=== PATIENT | female | born 1995 | race Caucasian/White ===

== ENCOUNTER 2020-02-27 16:23 | Emergency (ER) | payer MEDICAID, OTHER, SELFPAY ==
[2020-02-27 16:27] VITALS: BP 119/79; PULSE 84; RESP 18; TEMP 36.7; O2SAT 100; BMI 30.7
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
[2020-02-27] MEDS: tetanus-dipt-pertussis 0.5 mL SDV IM (20:36)
[2020-02-27] MEDS: azithromycin 250 mg Tablet 1000 MG PO (20:39)
== END 2020-02-27 20:45 ==
PROVIDERS: Emergency Provider Nurse Practitioner Family
DX: T76.21XA Adult sexual abuse, suspected, initial encounter (principal); Z23 Encounter for immunization
CPT/HCPCS: 12345; 87491; 87591; 90471; 90715; 96372; 99282; J0696; Q0144

== ENCOUNTER → 2020-03-08 12:24 | Outpatient (BNVA) | payer MEDICAID, SELFPAY | PROVIDERS: Visit Provider Nurse Practitioner Family | DX: T74.21XD Adult sexual abuse, confirmed, subsequent encounter (principal); Z13.31 Encounter for screening for depression | CPT/HCPCS: 87086; 87491; 87591 ==

== ENCOUNTER 2020-05-01 15:07 | Outpatient (CLI) | payer MEDICAID, SELFPAY ==
[2020-05-01] VITALS (10 sets, daily range): BP systolic 121; BP diastolic 68; PULSE 85–122; RESP 18; TEMP 36.8; O2SAT 97–100; BMI 30.4
== END 2020-05-01 17:13 | disposition home or self-care (01) ==
LOC: OPOB 15:21 → OBGYN 16:56
PROVIDERS: Visit Provider Family Medicine
DX: O26.899 Other specified pregnancy related conditions, unspecified trimester (principal); Z3A.00 Weeks of gestation of pregnancy not specified; R10.9 Unspecified abdominal pain
CPT/HCPCS: 59025; 99211

== ENCOUNTER 2020-05-27 16:13 | Outpatient (CLI) | payer MEDICAID, SELFPAY ==
[2020-05-27] VITALS (9 sets, daily range): BP systolic 0–123; BP diastolic 0–78; PULSE 70–88; RESP 16; TEMP 36.7; BMI 27.7
== END 2020-05-27 19:25 | disposition home or self-care (01) ==
LOC: OPOB 16:25 → OBGYN 19:11
PROVIDERS: Visit Provider Family Medicine
DX: O24.419 Gestational diabetes mellitus in pregnancy, unspecified control (principal); Z3A.00 Weeks of gestation of pregnancy not specified; R10.9 Unspecified abdominal pain
CPT/HCPCS: 59025; 83986; 99211

== ENCOUNTER 2020-05-28 02:00 | Inpatient (IN) | payer MEDICAID, SELFPAY ==
[2020-05-28] VITALS (101 sets, daily range): BP systolic 0–147; BP diastolic 0–97; PULSE 56–124; RESP 16–18; TEMP 36.6–36.9; O2SAT 97–100; BMI 27.7
[2020-05-28 02:42] LABS: Basophils % 0.2 %; Eosinophils # 0.1 10^3/uL (0.0-0.8); Eosinophils % 0.9 %; Hematocrit 30.2 % (37.0-47.0); Hemoglobin 9.9 g/dL (11.5-15.3); Lymphocytes # 2.3 10^3/uL (0.8-4.8); Lymphocytes % 21.8 %; Mean Corpuscular HGB Conc 32.8 g/dL (30.0-36.0); Mean Corpuscular Hemoglobin 29.6 pg (28.0-34.0); Mean Corpuscular Volume 90.1 fL (81-99); Mean Platelet Volume 11.3 fL (7.4-10.4); Monocytes # 0.6 10^3/uL (0.2-0.9); Monocytes % 5.5 %; Neutrophils # 7.41 10^3/uL (1.8-7.7); Neutrophils % 71.3 %; Nucleated Red Blood Cells % 0 %; Platelet Count 197 10^3/cmm (130-400); Red Blood Count 3.35 10^6/uL (4.1-5.3); Red Cell Distribution Width 13.2 % (12.1-15.1); White Blood Count 10.4 10^3/uL (4.0-10.0)
--- NOTE | 2020-05-28 03:30 | ANES.PREANE2 ---
Pre-Anesthetic Assessment Pre-Anesthetic Assessment: Height/Weight: Height 1.7 m Pulse Resp BP Pulse Ox 107 H 18 145/79 100 05/28/20 03:57 05/28/20 03:39 05/28/20 03:57 05/28/20 03:52 Preop Diagnosis: IUP Proposed Procedure: labor epidural Was Beta Kaye taken within 24 hours: N/A Social: Social History: No alcohol and No tobacco Exam: Pre-Anes Outpt Exam: alert, oriented x 3, clear to auscultation bilaterally and regular rate & rhythm Airway: Submandibular: WNL Cervical ROM: WNL MP: 2 History/ROS: No significant history except as noted Pulmonary: Pulmonary: None reported CV/HEM: CV/HEM: None reported : : None reported Hepatic: Hepatic: None reported GI: GI: None reported Metabolic: Metabolic: None reported Musc/skel: Musc/skel: None reported Neuropsych: Neuropsych: None reported Anesthetic Plan: ASA status: 1 Anesthesia: Anesthesia Evaluation Risk of > 500 ml blood loss (7ml/kg in children): No Meds/Allergies Current Medications: Current Medications Generic Name Dose Route Start Last Admin Trade Name Freq PRN Reason Stop Dose Admin Fentanyl 25 - 100 mcg 05/28/20 02:02 05/28/20 03:39 Sublimaze IV 25 mcg Q1H PRN Administration SEVERE PAIN Ondansetron HCl 4 mg 05/28/20 02:02 05/28/20 03:39 Zofran IVP 4 mg Q4H PRN Administration NAUSEA AND VOMITI NG PFSH Anesthesia PFSH: Social History (Updated 03/08/20 @ 11:45 by Tiff Sher LPN) Smoking and tobacco status: never smoked Alcohol intake: never Data Anesthesia CBC & Chem 7: 05/28/20 02:10 Other Labs: Laboratory Results - last 48 hr 05/28/20 05/28/20 02:10 03:16 WBC 10.4 H RBC 3.35 L Hgb 9.9 L Hct 30.2 L MCV 90.1 MCH 29.6 MCHC 32.8 RDW 13.2 Plt Count 197 MPV 11.3 H Neut % (Auto) 71.3 Lymph % (Auto) 21.8 [place] % (Auto) 5.5 Eos % (Auto) 0.9 Baso % (Auto) 0.2 Neut # (Auto) 7.41 Lymph # (Auto) 2.3 [place] # (Auto) 0.6 Eos # (Auto) 0.1 Baso # (Auto) 0.0 Nucleated RBC % (auto) 0 Nucleated RBCs # 0.0 Urine Opiates Screen Negative Ur Barbiturates Screen Negative Ur Phencyclidine Scrn Negative Ur Amphetamines Screen Negative U Benzodiazepines Scrn Negative Urine Cocaine Screen Negative U Marijuana (THC) Screen Negative Cardiac Studies: No Data to Display
[2020-05-28 03:32] LABS: Amphetamines Screen Urine Negative (Negative); Barbiturates Screen Urine Negative (Negative); Benzodiazepines Screen Urine Negative (Negative); Cocaine Screen Urine Negative (Negative); Opiate Screen Urine Negative (Negative); PCP Screen Urine Negative (Negative); THC Screen Urine Negative (Negative)
[2020-05-28] MEDS: ondansetron 2 mg/ML SDV 2 mL 4 MG IVP ×2 (03:39→10:02)
[2020-05-28] MEDS: fentaNYL 50 mcg/mL INJ 2mL IV (03:39)
--- NOTE | 2020-05-28 04:03 | ANES.PROC ---
Anesthesia Procedures Procedure/Date: 05/28/20 Epidural: Time Out Performed: Yes Consents Signed: Procedure Consent Consent: requested by attending/covering physician Lumbar Level: L3-L4 Epidural position: sitting Epidural procedure: sterile prep of area, 1% lidocaine to numb the area, 18 g needle, negative for paresthesia passed, neg for paresthesia, test dose given, 1.5% xylocaine 1:200k epi (5ml), 0.2% Ropivacaine bolus ml (5ml), placed PCEA, no systemic response, sterile dressing applied, L.U.D. no apparent complications and 0.2% Ropiavacaine @ mls/hr (13)
--- NOTE | 2020-05-28 04:59 | PC.NURSE ---
This RN and Courtney Oliveira RN at bedside for epidural placement. 25mcg of Fentanyl was given via IVP per order. Chantal Jackson CRNA at bedside and requested to use remaining 75mcg of Fentanyl in patients epidural. Vial given to PARMINDER Jackson by this RN and JEN Oliveira as witness.
--- NOTE | 2020-05-28 06:44 | PC.NURSE ---
Child being placed for adoption.
[2020-05-28] MEDS: dextrose 5%-lactated ringers 1,000 ML 125 ML IV (11:31)
[2020-05-28] MEDS: oxytocin 30 UNIT/500 ML BAG 600 UNIT IV (13:06)
--- NOTE | 2020-05-28 13:43 | P.PCNOB_ITS ---
Delivery Note: Date of delivery: May 28, 2020 Pre-Delivery Course: The patient had routine care at [facility]. She initially tested positive for chlamydia early in the but had 2 negative tests later in the . There were no complications during the . Delivery: This is a 24-year-old G3, P2 at 40 weeks 3 days gestation who presented to labor and delivery in active labor. She presented with planned adoption and the adoptive mother. Her labor progressed well on its own. She received an epidural for pain management. She had artificial rupture of membranes with clear fluid approximately 3 hours prior to delivery. She was GBS negative. She only had to push 3 times. She had a normal spontaneous vaginal delivery of a viable male weight 3145 g, 6 pounds 15 ounces, Apgars 9 and 9. The infant was suctioned at delivery and then taken to the warmer. The placenta was delivered grossly intact and normal to inspection. There was a small second-degree perineal laceration that was sutured using 3-0 chromic. Mother and infant were doing well after delivery. Estimated blood loss 200 mL. A&P Assessment and plan (1) Normal spontaneous vaginal delivery: Status: Acute Coding Level of Care Code Acute Pilot Teacher for Chg Fwd Diagnoses Normal spontaneous vaginal delivery O80
--- NOTE | 2020-05-28 14:01 | PC.NURSE ---
Dr. Gonzales states patient has had two negative GC tests since the positive reflected in her paper prenatals.
[2020-05-28] MEDS: ibuprofen 800 mg tablet PO ×2 (15:44→21:40)
[2020-05-28] MEDS: benzocaine-menthol 78 gm Canister 1 SPRAY TOPICAL (15:44)
--- NOTE | 2020-05-28 16:49 | PC.NURSE ---
Patient taken to room 206-2 via w/c. Patient's right leg remains numb. Patient oriented to and certificate explained. Patient instructed not to get up without assistance.
[2020-05-28] MEDS: docusate sodium 100 mg Capsule PO (18:46)
[2020-05-28] MEDS: HYDROcodone-acetaminophen 5-325 mg Tablet PO (22:55)
[2020-05-29 02:25] LABS: Hematocrit 27.3 % (37.0-47.0); Hemoglobin 8.6 g/dL (11.5-15.3); Mean Corpuscular HGB Conc 31.5 g/dL (30.0-36.0); Mean Corpuscular Hemoglobin 29.1 pg (28.0-34.0); Mean Corpuscular Volume 92.2 fL (81-99); Mean Platelet Volume 11.1 fL (7.4-10.4); Platelet Count 147 10^3/cmm (130-400); Red Blood Count 2.96 10^6/uL (4.1-5.3); Red Cell Distribution Width 13.3 % (12.1-15.1); White Blood Count 10.9 10^3/uL (4.0-10.0)
[2020-05-29 03:00] VITALS: BP 124/70; PULSE 68; RESP 18
[2020-05-29] MEDS: HYDROcodone-acetaminophen 5-325 mg Tablet PO (05:46)
[2020-05-29] MEDS: ibuprofen 800 mg tablet PO (09:19)
[2020-05-29] MEDS: prenatal vitamin Capsule 1 CAP PO (09:19)
[2020-05-29] MEDS: docusate sodium 100 mg Capsule PO (09:19)
--- NOTE | 2020-05-29 10:06 | PM.OBGYDC ---
Discharge Providers GUEST HOUSE MANAGER Date of Admission: 05/28/20 02:00 Date of Discharge: 05/29/20 Attending Provider at Admission: Sera Gonzales MD Attending Provider at Discharge: Sera Gonzales MD Diagnoses at Discharge Discharge Diagnosis (1) Normal spontaneous vaginal delivery: Status: Acute Reason for Visit Reason for Visit: Contractions Hospital Course Hospital Course: This is a 24-year-old G3 now P3 at 40 weeks 3 days gestation who presented to labor and delivery in active labor. She had a normal spontaneous vaginal delivery of a viable male infant. The was a planned adoption. Mother did well after delivery and had decreased vaginal bleeding, no pain, was ambulating, tolerating a regular diet and was comfortable with discharge home. Information Peripartum Data: Delivery Method: Vaginal Physical Exam Const: COMMON NORMALS: patient oriented x3 HENMT: COMMON NORMALS: normocephalic and atraumatic HEAD & SCALP: normocephalic and atraumatic Eye: COMMON NORMALS: Equal, round and reactive pupils present and EOMs intact bilaterally PUPIL: Yes Equal, round and reactive pupils present Resp: COMMON NORMALS: normal respiratory effort Cardio: COMMON NORMALS: regular rate and regular rhythm RATE: regular rate RHYTHM: regular rhythm GI: COMMON NORMALS: Soft to palpation (Fundus firm U- 2), non-tender and No hepatosplenomegaly present PALPATION: Yes Soft to palpation (Fundus firm U- 2) and Yes No hepatosplenomegaly present Extremity: GENERAL: No calf tenderness and No edema Neuro: COMMON NORMALS: patient oriented x3 Urinary Catheter Management^: Treviño: Cath Placed During This Visit: yes, but has since been removed by the nurse Reason for Continuing Indwelling Catheter: Required Immobilization for Trauma or Surgery or Anesthesia Urinary Catheter Date of Insertion: 05/28/20 Urinary Catheter Time of Insertion: 04:00 Date Urinary Catheter Removed: 05/28/20 Time Urinary Catheter Discontinued: 12:57 Discharge Data Data Completed and Pending: Labs from last 24 hours 05/29/20 02:15 WBC 10.9 H RBC 2.96 L Hgb 8.6 L Hct 27.3 L MCV 92.2 MCH 29.1 MCHC 31.5 RDW 13.3 Plt Count 147 MPV 11.1 H Vitals: Last Vital Signs Temp 98.4 F 05/28/20 21:00 Pulse 68 05/29/20 03:00 Resp 18 05/29/20 03:00 BP 124/70 05/29/20 03:00 Pulse Ox 97 05/28/20 23:00 Discharge Plan Discharge Patient Disposition: Home Condition: Stable Prescriptions: No Action No Known Home Medications RF: 0 Discharge Orders: Discharge Order (Routine); Ordered 05/29/20 Ordered By: Sera Gonzales Referrals: Sera Gonzales MD [Physician] - 2 weeks Discharge Diet: Usual diet Discharge Activity: Limit activity as instructed Patient Instructions: Perineal Care (GEN), Vaginal Delivery (GEN), Bleeding (GEN), OB Discharge Report, OB Food/Drug Interaction Guide Discharge Attestations GUEST HOUSE MANAGER Time Spent in Discharge Care*: less than 30 min Coding Level of Care Code Acute Remanufacturing Technician for Chg Fwd Diagnoses Normal spontaneous vaginal delivery O80
[2020-05-29 10:56] VITALS: BP 117/73; PULSE 69; RESP 15
[2020-05-29 12:04] VITALS: BP 111/73; PULSE 70; RESP 17; TEMP 36.9; O2SAT 99
== END 2020-05-29 12:17 | disposition home or self-care (01) | DRG 807 ==
LOC: OPOB 02:01 → OBGYN 02:01
PROVIDERS: Admitting Provider Family Medicine; Visit Provider Family Medicine
DX: O70.1 Second degree perineal laceration during delivery (principal); Z37.0 Single live birth; Z3A.40 40 weeks gestation of pregnancy
CPT/HCPCS: 36415; 51702; 59025; 59409; 80306; 85025; 85027; 96374; 96375; 99211; J2405; J2795; J3010

== ENCOUNTER 2020-11-02 19:46 | Emergency (ER) | payer BC, MEDICAID, SELFPAY ==
[2020-11-02 19:52] VITALS: BP 109/73; PULSE 129; RESP 18; TEMP 36.7; O2SAT 100; BMI 28.3
--- NOTE | 2020-11-02 19:54 | USR_ITS ---
PROCEDURE INFORMATION: Exam: US Nonobstetric Pelvis; Complete Exam date and time: 11/02/2020 10:15 PM Age: 25 years old Clinical indication: Other: Bleeding; Pelvic pain; Additional info: Miscarriage TECHNIQUE: Imaging protocol: Transabdominal pelvic nonobstetric ultrasound. Complete exam. Real time ultrasound with image documentation. COMPARISON: US Pelvis Female [id number] 06/30/2014 2:31 PM FINDINGS: Uterus/cervix: The uterus measures 11.7 x 4.3 x 6 cm. There is echogenic material present in the endometrial canal. Right adnexa: Right ovary is 2.6 x 1.4 x 2 cm. Normal flow. Left adnexa: Left ovary is 2.4 x 1 x 1.4 cm. Normal blood flow. Intraperitoneal space: No intraperitoneal fluid. Urinary bladder: Normal. US/US pelvic complete* [id number] IMPRESSION: Echogenic material in the endometrial canal without blood flow. Finding likely represents hemorrhage.
--- NOTE | 2020-11-02 20:15 | W.ED.FEMALGU ---
HPI - Female Genitourinary General: Chief complaint: Vaginal Bleeding Stated complaint: vaginal bleeding Time Seen by Provider: 11/02/20 19:47 History of Present Illness: HPI Narrative: The patient is a 25-year-old female diagnosed with a miscarriage 2 weeks ago. She was approximately 6 weeks gestational age. She was offered a D&C and declined an prefers to let the child pass spontaneously. She has had normal amounts of bleeding for the past few days however today she started to have large amounts of blood and when she stood up the bleeding went through her pants and onto the ground and she continues to gush of blood. She is having cramping associated, nausea, vomiting. MD elicited complaint: vaginal bleeding and other (Miscarriage) Severity: moderate Quality of pain: cramping Consistency: intermittent Vaginal bleeding: heavy and clots Associated symptoms: Reports nausea and vaginal bleeding; Deny abdominal pain or headache(s) Review of Systems General: Reports: 10 or more systems reviewed and unremarkable except in HPI and below Const: Denies: fatigue Eyes: Denies: change in vision, blurry vision or eye redness ENMT: Denies: throat pain, swelling of lips/tongue, ear or mastoid pain or nasal congestion Card: Denies: chest pain, palpitations, irregular heart rhythm, edema, dyspnea on exertion or orthopnea Resp: Denies: dyspnea, productive cough or non-productive cough GI: Reports: nausea and vomiting; Denies: abdominal pain, diarrhea or GI cramping : Reports: vaginal bleeding; Denies: flank pain, difficulty voiding, urinary frequency or urinary urgency Musc: Denies: neck pain, back pain, extremity pain, joint pain, joint redness, limited range of motion or muscle weakness Skin/Breast: Denies: rash, pruritus, erythema, skin pain or skin tenderness Neuro: Denies: headache(s), numbness in extremities, weakness in extremities, sensory changes, difficulty walking, dizziness, confusion or Slurred speech present Psych: Denies: anxiety or depression Endo: Denies: polyuria All/Imm: Denies: urticaria, throat swelling or tongue swelling PFSH ED PFSH: Social History (Updated 03/08/20 @ 11:45 by Tiff Sher LPN) Smoking and tobacco status: never smoked Alcohol intake: never Physical Exam Const: COMMON NORMALS: no acute distress, average body habitus, patient oriented x3, no limitations, healthy appearing, alert and well nourished GENERAL APPEARANCE: cooperative, comfortable, well kempt and well developed ORIENTATION/CONSCIOUSNESS: Yes awake, Yes oriented to person, Yes oriented to place and Yes oriented to time HENMT: COMMON NORMALS: normocephalic, external ears normal and Normal external nose present HEAD & SCALP: normal to inspection and normocephalic NOSE: Normal external nose present EXTERNAL EAR: Yes external ears normal MOUTH: Normal oral and palatal mucosa present THROAT: posterior oropharynx normal Eye: COMMON NORMALS: Equal, round and reactive pupils present and EOMs intact bilaterally GENERAL EYE: appearance normal, both eyes and all related structures PUPIL: Yes Equal, round and reactive pupils present Neck/C-Spine: COMMON NORMALS: full ROM, no lymphadenopathy, no meningeal signs and no JVD GENERAL: Yes normal visual inspection Lymph: LYMPHATIC: no lymphadenopathy noted Chest: COMMONS NORMALS: normal inspection of the chest and normal palpation of entire chest wall Resp: COMMON NORMALS: normal respiratory effort, No retractions, No use of accessory muscles, clear to auscultation bilaterally and percussion normal EFFORT & INSPECTION: Yes able to speak in complete sentences AUSCULTATION: clear to auscultation bilaterally PERCUSSION: percussion normal Cardio: COMMON NORMALS: no JVD, regular rate, regular rhythm, S1 normal heart sound present, S2 normal heart sound present and Peripheral pulses 2+ throughout RATE: regular rate RHYTHM: regular rhythm HEART SOUNDS: S1 normal heart sound present and S2 normal heart sound present PERIPHERAL PULSES: Peripheral pulses 2+ throughout GI: COMMON NORMALS: Normal to inspection, nondistended, normoactive bowel sounds present, Soft to palpation, non-tender and no masses INSPECTION: Yes normal to inspection PALPATION: Yes Soft to palpation : COMMON NORMALS: Yes no CVA tenderness BLADDER/KIDNEY EXAM: Yes no CVA tenderness SPECULUM EXAM - VAGINA: Yes vaginal bleeding and Yes other (Removed a clot from her vagina. No significant gushing of blood actively.) OB/EXTERNAL & SPECULUM: vaginal bleeding Back/Pelvis: COMMON NORMALS: no CVA tenderness, thoracic and lumbar spine normal to inspection, no thoracic nor lumbar tenderness and thoraco-lumbar ROM normal Extremity: COMMON NORMALS: normal to inspection, full ROM, capillary refill normal, no joint enlargement and no pedal edema GENERAL: Yes normal exam except as noted Neuro: COMMON NORMALS: patient oriented x3, CN's II-XII intact bilaterally, moves all extremities, no focal motor deficits, no sensory deficits noted and gait normal SENSORIUM/ORIENTATION: Yes alert, Yes oriented to person, Yes oriented to place and Yes oriented to time MENINGEAL SIGNS: Yes no meningeal signs Psych: COMMON NORMALS: mental status grossly normal, Normal thought process present, cooperative, normal affect and speech normal APPEARANCE: Yes well kempt ATTITUDE: Yes calm SPEECH: Yes normal speech THOUGHT PROCESS: Normal thought process present Skin: COMMON NORMALS: no rashes or lesions noted GENERAL SKIN EXAM: no rashes or lesions noted Course Vital Signs: Vital signs: Vital Signs Temperature 98.0 F 11/02/20 19:52 Pulse Rate 98 11/02/20 22:57 Respiratory Rate 18 11/02/20 22:57 Blood Pressure 129/68 11/02/20 22:57 Pulse Oximetry 99 11/02/20 22:57 MDM - Female MDM Narrative: Medical decision making narrative: The patient came in for a miscarriage. She is Rh- and has a hemoglobin of 10.9. Ultrasound is negative for any intrauterine products of conception. Her heart rate was initially elevated in the 120s and was given a liter of fluids, Zofran which helped and she is now below [address] rate. [address] Hay who recommends discharge and follow-up with her OB in a day or 2. The patient is amenable to this plan and will do so. ER with worsening symptoms Lab Data: Labs: Lab Results 11/02/20 11/02/20 11/02/20 Range/Units 20:10 20:10 20:10 WBC 9.0 (4.0-10.0) 10^3/ uL RBC 3.62 L (4.1-5.3) 10^6/u L Hgb 10.9 L (11.5-15.3) g/dL Hct 32.8 L (37.0-47.0) % MCV 90.6 (81-99) fL MCH 30.1 (28.0-34.0) pg MCHC 33.2 (30.0-36.0) g/dL RDW 12.1 (12.1-15.1) % Plt Count 183 (130-400) 10^3/c mm MPV 11.5 H (7.4-10.4) fL Neut % (Auto) 60.4 % Lymph % (Auto) 31.6 % [place] % (Auto) 5.3 % Eos % (Auto) 1.9 % Baso % (Auto) 0.4 % Neut # (Auto) 5.43 (1.8-7.7) 10^3/u L Lymph # (Auto) 2.9 (0.8-4.8) 10^3/u L [place] # (Auto) 0.5 (0.2-0.9) 10^3/u L Eos # (Auto) 0.2 (0.0-0.8) 10^3/u L Baso # (Auto) 0.0 (0.0-0.1) 10^3/u L Nucleated RBC % (a uto) 0 % Nucleated RBCs # 0.0 /100WBC Sodium 138 (136-145) mmol/L Potassium 3.6 (3.5-5.1) mmol/L Chloride 105 (98-107) mmol/L Carbon Dioxide 23 (22-29) mmol/L Anion Gap 13.6 (5-19) BUN 10 (6-20) mg/dL Creatinine 0.5 (0.5-0.9) mg/dL GFR Calculation 149.1 H (90-130) mL/min Glucose 111 (65-115) mg/dL Calculated Osmolal ity 286 (285-295) mOsm/k g Calcium 9.0 (8.5-10.5) mg/dL Total Bilirubin 0.3 (0.15-1.2) mg/dL AST 17 (0-32) U/L ALT 13 (0-33) U/L Alkaline Phosphata se 69 (35-105) IU/L Total Protein 6.2 L (6.6-8.7) g/dL Albumin 3.7 (3.5-5.2) g/dL Globulin 2.5 (1.3-4.6) g/dL Blood Type A Positive Rho(D) Type Positive / 4+ Discharge Plan Discharge Patient Disposition: Home Clinical Impression: Complete Condition: Stable Prescriptions: New hydrocodone-acetaminophen 5-325 mg tablet 1 tab PO Q6H PRN (Reason: pain) Qty: 14 RF: 0 No Action ibuprofen 200 mg Tablet 200 - 400 mg PO Q6H PRN (Reason: Pain) RF: 0 Discharge Orders: Discharge ED (Routine); Ordered 11/02/20 Ordered By: Cricket Buchanan Discharge Diet: Advance as tolerated Discharge Activity: Resume usual activity Patient Instructions: Spontaneous Miscarriage (ED), Opioid Safety Activity Restrictions/Additional Instructions: You are having a miscarriage. There are no products of conception left in your uterus but you continue to bleed which is normal and should slow. If you are soaking one pad per hour please return to the ER for further evaluation otherwise follow-up with your OB in the next couple days. You may take the pain medicine to help with severe pain only. Do not mix with drugs, alcohol, nor operate machinery while taking this medication. Coding Level of Care Code ED Equipment Records Supervisor for Harry Stewart Exam Comprehensive
[2020-11-02] MEDS: sodium chloride 0.9% 1,000 ML 999 ML IV (20:20)
[2020-11-02] MEDS: ondansetron 2 mg/ML SDV 2 mL 4 MG IVP (20:20)
[2020-11-02 20:41] LABS: Basophils % 0.4 %; Eosinophils # 0.2 10^3/uL (0.0-0.8); Eosinophils % 1.9 %; Hematocrit 32.8 % (37.0-47.0); Hemoglobin 10.9 g/dL (11.5-15.3); Lymphocytes # 2.9 10^3/uL (0.8-4.8); Lymphocytes % 31.6 %; Mean Corpuscular HGB Conc 33.2 g/dL (30.0-36.0); Mean Corpuscular Hemoglobin 30.1 pg (28.0-34.0); Mean Corpuscular Volume 90.6 fL (81-99); Mean Platelet Volume 11.5 fL (7.4-10.4); Monocytes # 0.5 10^3/uL (0.2-0.9); Monocytes % 5.3 %; Neutrophils # 5.43 10^3/uL (1.8-7.7); Neutrophils % 60.4 %; Nucleated Red Blood Cells % 0 %; Platelet Count 183 10^3/cmm (130-400); Red Blood Count 3.62 10^6/uL (4.1-5.3); Red Cell Distribution Width 12.1 % (12.1-15.1)
[2020-11-02 20:44] LABS: Alanine Aminotransferase 13 U/L (0-33); Albumin Level 3.7 g/dL (3.5-5.2); Alkaline Phosphatase 69 IU/L (35-105); Anion Gap 13.6 (5-19); Aspartate Amino Transferase 17 U/L (0-32); Blood Urea Nitrogen 10 mg/dL (6-20); Carbon Dioxide 23 mmol/L (22-29); Chloride 105 mmol/L (98-107); Globulin 2.5 g/dL (1.3-4.6); Glomerular Filtration Rate 149.1 mL/min (90-130); Glucose 111 mg/dL (65-115); Osmolality Calculated 286 mOsm/kg (285-295); Potassium 3.6 mmol/L (3.5-5.1); Sodium 138 mmol/L (136-145); Total Bilirubin 0.3 mg/dL (0.15-1.2); Total Protein 6.2 g/dL (6.6-8.7)
[2020-11-02 21:36] VITALS: RESP 18
[2020-11-02] MEDS: HYDROmorphone 1 mg/mL INJ 1 mL 0.5 MG IVP (21:36)
[2020-11-02 21:45] VITALS: BP 129/76; PULSE 102; RESP 18; O2SAT 100
--- NOTE | 2020-11-02 21:45 | PC.NURSE ---
Cleaned patient for second time removing 2 fully and 1 partial saturated chucks with 1 large clot and patient appears to continue to bleed
[2020-11-02 22:57] VITALS: BP 129/68; PULSE 98; RESP 18; O2SAT 99
--- NOTE | 2020-11-02 22:58 | PC.NURSE ---
Pelvic exam performed with Buchanan, removed moderate sized clot.
[2020-11-03 00:15] VITALS: O2SAT 97
[2020-11-03] MEDS: ondansetron 2 mg/ML SDV 2 mL 4 MG IM (00:21)
== END 2020-11-03 00:30 | disposition home or self-care (01) ==
PROVIDERS: Emergency Provider Family Medicine
DX: O03.9 Complete or unspecified spontaneous abortion without complication (principal)
CPT/HCPCS: 76856; 80053; 85025; 86900; 96361; 96372; 96374; 99284; J1170; J2405; J7030

== ENCOUNTER 2020-11-06 21:01 | Emergency (ER) | payer BC, MEDICAID, SELFPAY ==
[2020-11-06 21:25] VITALS: BP 133/96; PULSE 74; RESP 15; TEMP 36.6; O2SAT 100; BMI 28.3
[2020-11-07 00:52] VITALS: BP 146/95; PULSE 88; RESP 18; O2SAT 100
--- NOTE | 2020-11-07 00:59 | ED_ITS ---
HPI - Female Genitourinary General: Chief complaint: Urogenital-Female Stated complaint: prolapsed uterus Time Seen by Provider: 11/07/20 00:50 History of Present Illness: HPI Narrative: Patient is a 25-year-old female comes to the ED with chief complaint. Patient was seen here in the ED on November 02 for vaginal bleeding and was diagnosed with a complete . Patient says she was discharged with some hydrocodone tablets for pain and has been taking them daily ever since November 02. She says she has been constipated and has not had a bowel movement for close to a week. She has not taken any stool softeners or MiraLAX. Patient says she was sitting in the bathroom trying to have a bowel movement and pushing and straining and she felt some pressure down in her vagina. She then could feel something slightly protruding out. Patient still having associated bleeding from miscarriage but she says the bleeding has decreased compared to a couple days ago. She still has some mild pelvic pain as well but severity has decreased as well. She denies any fever, chills, nausea/vomiting, diarrhea, blood in the stool, dysuria or hematuria. Associated symptoms: Deny abdominal pain, headache(s) or nausea Review of Systems Const: Denies: fever(s), chills or fatigue Eyes: Denies: change in vision or eye discomfort ENMT: Denies: throat pain, odynophagia, nasal discharge or nasal congestion Card: Denies: chest pain, palpitations, edema, swelling of feet/ankles, dyspnea on exertion or orthopnea Resp: Denies: dyspnea, productive cough or non-productive cough GI: Denies: abdominal pain, nausea, vomiting, diarrhea, constipation or hematochezia : Reports: vaginal bleeding (Still having residual vaginal bleeding after miscarriage.?Mild), pelvic pain (Patient still having some pelvic pain since miscarriage.?Mild) and prolapse symptoms; Denies: flank pain, dysuria or hematuria Musc: Denies: neck pain, back pain or extremity swelling Skin/Breast: Denies: rash or new lesions Neuro: Denies: headache(s), numbness in extremities or weakness in extremities PFSH ED PFSH: Social History Smoking and tobacco status: never smoked Alcohol intake: never Physical Exam Const: COMMON NORMALS: no acute distress, patient oriented x3, healthy appearing and alert GENERAL APPEARANCE: cooperative and comfortable HENMT: COMMON NORMALS: normocephalic HEAD & SCALP: normocephalic MOUTH: Normal oral and palatal mucosa present THROAT: posterior oropharynx normal and uvula midline Neck/C-Spine: COMMON NORMALS: supple GENERAL: Yes normal visual inspection Resp: COMMON NORMALS: normal respiratory effort, No retractions, No use of accessory muscles and clear to auscultation bilaterally AUSCULTATION: clear to auscultation bilaterally Cardio: COMMON NORMALS: regular rate, regular rhythm, S1 normal heart sound present, S2 normal heart sound present, No gallops present (Cardio), No clicks present (Cardio), No murmurs present (Cardio) and Peripheral pulses 2+ throughout RATE: regular rate RHYTHM: regular rhythm HEART SOUNDS: S1 normal heart sound present and S2 normal heart sound present PERIPHERAL PULSES: Peripheral pulses 2+ throughout GI: COMMON NORMALS: Normal to inspection, nondistended, normoactive bowel sounds present, Soft to palpation, non-tender and no masses PALPATION: Yes Soft to palpation : COMMON NORMALS: Yes no CVA tenderness BLADDER/KIDNEY EXAM: Yes no CVA tenderness OTHER: Patient refused pelvic exam. Patient says she will have her BUSINESS SERVICES INTERN doctor perform pelvic when she sees her in the next 2 days. Back/Pelvis: COMMON NORMALS: no CVA tenderness Extremity: COMMON NORMALS: normal to inspection Neuro: COMMON NORMALS: patient oriented x3 and moves all extremities SENSORIUM/ORIENTATION: Yes alert Skin: GENERAL SKIN EXAM: dry skin Course ED course: Patient denied getting pelvic exam today. she would rather have have Dr. Gonzales her BUSINESS SERVICES INTERN doctor to perform pelvic tomorrow or Saturday when she gets scheduled. Vital Signs: Vital signs: Vital Signs Temperature 97.9 F 11/07/20 03:03 Pulse Rate 68 11/07/20 03:03 Respiratory Rate 16 11/07/20 03:03 Blood Pressure 113/60 11/07/20 03:03 Pulse Oximetry 98 11/07/20 03:03 MDM - Female MDM Narrative: Medical decision making narrative: Patient is a 25-year-old female who comes to the ED with complaints and constipation. Patient was seen here in the ED on November 02 for miscarriage and was told to follow-up with her BUSINESS SERVICES INTERN doctor in a couple days. Patient has not seen her BUSINESS SERVICES INTERN doctor yet and comes to the ED because she thinks she might have a prolapsed uterus. She says prolapsed uterus is not causing her any symptoms. 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 She also does complain of having some constipation but she has been taking hydrocodone for the past 5 days as well. Denies any fever, nausea/vomiting, UTI symptoms. Physical exam patient appears healthy and nontoxic and in no acute distress or pain. Patient refused pelvic exam and says she will have her BUSINESS SERVICES INTERN doctor do it when she sees her in the next 2 days. Hemoglobin 8.1 and the rest of CBC, CMP and UA were unremarkable. Her hCG quant was 445.8. For patient's constipation I sending you with a prescription for MiraLAX and docusate tablets to help. I recommended that patient follow-up with Dr. Gonzales in the next 1 to 2 days to recheck hemoglobin levels and hCG level and discuss further management of miscarriage if needed. I stressed with patient is important for her to see her OB doctor within the next 2 days. I told her to call Dr. Gonzales tomorrow morning to get an appointment set for Saturday, November 07 or SaturdayNovember 08. Return to ED precautions given. Patient understood and agreed with plan. Lab Data: Attestation: I reviewed the patient's lab results. Labs: Lab Results 11/07/20 11/07/20 11/07/20 Range/Units 01:23 01:46 01:46 WBC 5.8 (4.0-10.0) 10^3/ uL RBC 2.65 L (4.1-5.3) 10^6/u L Hgb 8.1 L (11.5-15.3) g/dL Hct 24.6 L (37.0-47.0) % MCV 92.8 (81-99) fL MCH 30.6 (28.0-34.0) pg MCHC 32.9 (30.0-36.0) g/dL RDW 12.4 (12.1-15.1) % Plt Count 183 (130-400) 10^3/c mm MPV 10.7 H (7.4-10.4) fL Neut % (Auto) 48.9 % Lymph % (Auto) 42.6 % Latimer % (Auto) 5.0 % Eos % (Auto) 2.8 % Baso % (Auto) 0.5 % Neut # (Auto) 2.81 (1.8-7.7) 10^3/u L Lymph # (Auto) 2.5 (0.8-4.8) 10^3/u L Latimer # (Auto) 0.3 (0.2-0.9) 10^3/u L Eos # (Auto) 0.2 (0.0-0.8) 10^3/u L Baso # (Auto) 0.0 (0.0-0.1) 10^3/u L Nucleated RBC % (a uto) 0 % Nucleated RBCs # 0.0 /100WBC Sodium 141 (136-145) mmol/L Potassium 3.7 (3.5-5.1) mmol/L Chloride 108 H (98-107) mmol/L Carbon Dioxide 24 (22-29) mmol/L Anion Gap 12.7 (5-19) BUN 8 (6-20) mg/dL Creatinine 0.6 (0.5-0.9) mg/dL GFR Calculation 120.8 (90-130) mL/min Glucose 91 (65-115) mg/dL Calculated Osmolal ity 290 (285-295) mOsm/k g Calcium 8.5 (8.5-10.5) mg/dL Total Bilirubin 0.2 (0.15-1.2) mg/dL AST 15 (0-32) U/L ALT 12 (0-33) U/L Alkaline Phosphata se 60 (35-105) IU/L Total Protein 5.7 L (6.6-8.7) g/dL Albumin 3.7 (3.5-5.2) g/dL Globulin 2.0 (1.3-4.6) g/dL Lipase 21 (13-60) U/L Ser , Edna i-Qnt mIU/mL Urine Color Yellow (Yellow) Urine Appearance Sl cloudy A (CLEAR) Urine pH 6.5 (5-7) Ur Specific Gravit y 1.020 (1.005-1.030) Urine Protein Neg (Negative) Urine Glucose (UA) Norm (Normal) Urine Ketones Negative (Negative) Urine Blood 3+ H (Negative) Urine Nitrate Negative (Negative) Urine Bilirubin Neg (Negative) Urine Urobilinogen 1 H (Negative) mg/dL Ur Leukocyte Hawa ase Negative (Negative) Urine RBC >100 H (0-2) /hpf Urine WBC 5-10 H (0-5) /hpf Ur Squamous Epith Cells 25-40 H (0-5) /hpf Amorphous Sediment 2+ /hpf Urine Bacteria 1+ H (NONE) /hpf Urine Mucus 1+ /hpf Blood Type Rho(D) Type 11/07/20 11/07/20 Range/Units 01:46 01:46 WBC (4.0-10.0) 10^3/ uL RBC (4.1-5.3) 10^6/u L Hgb (11.5-15.3) g/dL Hct (37.0-47.0) % MCV (81-99) fL MCH (28.0-34.0) pg MCHC (30.0-36.0) g/dL RDW (12.1-15.1) % Plt Count (130-400) 10^3/c mm MPV (7.4-10.4) fL Neut % (Auto) % Lymph % (Auto) % Latimer % (Auto) % Eos % (Auto) % Baso % (Auto) % Neut # (Auto) (1.8-7.7) 10^3/u L Lymph # (Auto) (0.8-4.8) 10^3/u L Latimer # (Auto) (0.2-0.9) 10^3/u L Eos # (Auto) (0.0-0.8) 10^3/u L Baso # (Auto) (0.0-0.1) 10^3/u L Nucleated RBC % (a uto) % Nucleated RBCs # /100WBC Sodium (136-145) mmol/L Potassium (3.5-5.1) mmol/L Chloride (98-107) mmol/L Carbon Dioxide (22-29) mmol/L Anion Gap (5-19) BUN (6-20) mg/dL Creatinine (0.5-0.9) mg/dL GFR Calculation (90-130) mL/min Glucose (65-115) mg/dL Calculated Osmolal ity (285-295) mOsm/k g Calcium (8.5-10.5) mg/dL Total Bilirubin (0.15-1.2) mg/dL AST (0-32) U/L ALT (0-33) U/L Alkaline Phosphata se (35-105) IU/L Total Protein (6.6-8.7) g/dL Albumin (3.5-5.2) g/dL Globulin (1.3-4.6) g/dL Lipase (13-60) U/L Ser , Edna i-Qnt 445.80 mIU/mL Urine Color (Yellow) Urine Appearance (CLEAR) Urine pH (5-7) Ur Specific Gravit y (1.005-1.030) Urine Protein (Negative) Urine Glucose (UA) (Normal) Urine Ketones (Negative) Urine Blood (Negative) Urine Nitrate (Negative) Urine Bilirubin (Negative) Urine Urobilinogen (Negative) mg/dL Ur Leukocyte Hawa ase (Negative) Urine RBC (0-2) /hpf Urine WBC (0-5) /hpf Ur Squamous Epith Cells (0-5) /hpf Amorphous Sediment /hpf Urine Bacteria (NONE) /hpf Urine Mucus /hpf Blood Type A Positive Rho(D) Type Positive / 4+ Discharge Plan Discharge Patient Disposition: Home Clinical Impression: Complete Anemia Qualifiers: Anemia type: unspecified type Qualified Code(s): D64.9 - Anemia, unspecified Constipation Qualifiers: Constipation type: drug induced constipation Qualified Code(s): K59.03 - Drug induced constipation Condition: Stable Prescriptions: New Miralax 17 gram/dose powder 17 g PO DAILY PRN (Reason: constipation) Qty: 119 RF: 0 docusate sodium 50 mg capsule 100 mg PO BID Qty: 20 RF: 0 No Action ibuprofen 200 mg Tablet 200 - 400 mg PO Q6H PRN (Reason: Pain) RF: 0 hydrocodone-acetaminophen 5-325 mg tablet 1 tab PO Q6H PRN (Reason: pain) Qty: 14 RF: 0 Discharge Orders: Discharge ED (Routine); Ordered 11/07/20 Ordered By: Flako Guerrero Discharge Diet: Regular Discharge Activity: Resume usual activity Patient Instructions: Spontaneous Miscarriage (ED), Constipation (ED), Anemia (ED) Activity Restrictions/Additional Instructions: Call Dr. Gonzales tomorrow and set up an appointment for you to be seen either tomorrow or Saturday for further evaluation. Have Dr. Gonzales check hCG quant levels and CBC to check your hemoglobin level. Return to the ER or your medical provider if condition worsens. Please read and understand discharge instructions. If any questions, please ask. Coding Level of Care Code ED Operator [employer] for Chg Fwd Exam Comprehensive
[2020-11-07 01:30] VITALS: BP 128/57; PULSE 58; RESP 15; O2SAT 98
[2020-11-07 01:45] LABS: Add Urine Microscopic? YES; Bilirubin Urine Neg (Negative); Blood Urine 3+ (Negative); Glucose Urine UA Norm (Normal); Ketones Urine Negative (Negative); Leukocyte Esterase Urine Negative (Negative); Nitrate Urine Negative (Negative); Protein Urine Neg (Negative); Urine Color Yellow (Yellow); Urobilinogen Urine 1 mg/dL (Negative); pH Urine 6.5 (5-7)
[2020-11-07 01:59] LABS: Basophils % 0.5 %; Eosinophils # 0.2 10^3/uL (0.0-0.8); Eosinophils % 2.8 %; Hematocrit 24.6 % (37.0-47.0); Hemoglobin 8.1 g/dL (11.5-15.3); Lymphocytes # 2.5 10^3/uL (0.8-4.8); Lymphocytes % 42.6 %; Mean Corpuscular HGB Conc 32.9 g/dL (30.0-36.0); Mean Corpuscular Hemoglobin 30.6 pg (28.0-34.0); Mean Corpuscular Volume 92.8 fL (81-99); Mean Platelet Volume 10.7 fL (7.4-10.4); Monocytes # 0.3 10^3/uL (0.2-0.9); Neutrophils # 2.81 10^3/uL (1.8-7.7); Neutrophils % 48.9 %; Nucleated Red Blood Cells % 0 %; Platelet Count 183 10^3/cmm (130-400); Red Blood Count 2.65 10^6/uL (4.1-5.3); Red Cell Distribution Width 12.4 % (12.1-15.1); White Blood Count 5.8 10^3/uL (4.0-10.0)
[2020-11-07 02:00] VITALS: BP 104/58; PULSE 65; RESP 15; O2SAT 96
[2020-11-07 02:04] LABS: RBC Urine >100 /hpf (0-2); Squamous Epithelial Cell Urine 25-40 /hpf (0-5)
[2020-11-07 02:05] LABS: Add Urine Culture? No; Amorphous Sediment Urine 2+ /hpf; Bacteria Urine 1+ /hpf; Mucus Urine 1+ /hpf
[2020-11-07 02:20] LABS: Alanine Aminotransferase 12 U/L (0-33); Albumin Level 3.7 g/dL (3.5-5.2); Alkaline Phosphatase 60 IU/L (35-105); Anion Gap 12.7 (5-19); Aspartate Amino Transferase 15 U/L (0-32); Blood Urea Nitrogen 8 mg/dL (6-20); Calcium 8.5 mg/dL (8.5-10.5); Carbon Dioxide 24 mmol/L (22-29); Chloride 108 mmol/L (98-107); Glomerular Filtration Rate 120.8 mL/min (90-130); Glucose 91 mg/dL (65-115); Lipase 21 U/L (13-60); Osmolality Calculated 290 mOsm/kg (285-295); Potassium 3.7 mmol/L (3.5-5.1); Sodium 141 mmol/L (136-145); Total Bilirubin 0.2 mg/dL (0.15-1.2); Total Protein 5.7 g/dL (6.6-8.7)
[2020-11-07 03:03] VITALS: BP 113/60; PULSE 68; RESP 16; TEMP 36.6; O2SAT 98
== END 2020-11-07 03:03 | disposition home or self-care (01) ==
PROVIDERS: Emergency Medicine; Emergency Provider Physician Assistant
DX: O03.9 Complete or unspecified spontaneous abortion without complication (principal); D64.9 Anemia, unspecified; K59.03 Drug induced constipation
CPT/HCPCS: 80053; 81001; 83690; 84702; 85025; 86900; 99282

== ENCOUNTER 2022-01-05 07:45 | Inpatient (IN) | payer BC, MEDICAID, SELFPAY ==
[2022-01-05] VITALS (22 sets, daily range): BP systolic 100–152; BP diastolic 62–91; PULSE 68–98; RESP 15–18; TEMP 36.7–36.9; O2SAT 97–98; BMI 29.5
[2022-01-05] MEDS: lactated ringers 1,000 ML 999 ML IV (07:45)
[2022-01-05 07:54] LABS: Basophils % 0.3 %; Eosinophils # 0.1 10^3/uL (0.0-0.8); Eosinophils % 1.1 %; Hematocrit 29.3 % (37.0-47.0); Hemoglobin 9.7 g/dL (11.5-15.3); Lymphocytes # 2.2 10^3/uL (0.8-4.8); Lymphocytes % 19.9 %; Mean Corpuscular HGB Conc 33.1 g/dL (30.0-36.0); Mean Corpuscular Hemoglobin 26.1 pg (28.0-34.0); Mean Corpuscular Volume 78.8 fl (81-99); Mean Platelet Volume 10.5 fL (7.4-10.4); Monocytes # 0.6 10^3/uL (0.2-0.9); Monocytes % 5.3 %; Neutrophils # 8.21 10^3/uL (1.8-7.7); Nucleated Red Blood Cells % 0 %; Platelet Count 204 10^3/cmm (130-400); Red Blood Count 3.72 10^6/uL (4.1-5.3); Red Cell Distribution Width 14.6 % (12.1-15.1); White Blood Count 11.2 10^3/uL (4.0-10.0)
[2022-01-05] MEDS: oxytocin 30 UNIT/500 ML BAG 999 UNIT IV (08:40)
--- NOTE | 2022-01-05 09:01 | PM.OPHPUD ---
Labor & Delivery H&P Update Date of Procedure: January 05, 2022 Date H&P Performed: 01/02/22 Admission Diagnosis: at 39 weeks 6 days gestation Acitve labor Preop diagnosis: IUP Planned procedure: Expectant management of labor and delivery.
--- NOTE | 2022-01-05 09:02 | P.PCNOB_ITS ---
Delivery Note: Date of delivery: January 05, 2022 Pre-Delivery Course: She had routine care at [facility]. There were no complications during the . She was blood type a positive antibody negative, rubella immune, GBS negative. The rest of her infectious disease panel was also negative. She passed her glucose tolerance test. Delivery: This is a 26-year-old G8, P3 at 39 weeks 6 days gestation who presented to labor and delivery in active labor. She was 5 cm 80% effaced and - 1 station had admission. She desired to receive an epidural but did not have time as her labor progressed rather quickly. When she was 9 cm and +1 station artificial rupture of membranes was performed with clear fluid. Less than 10 minutes after rupture she had a normal spontaneous vaginal delivery of a viable female infant weight 3050 g, 6 pounds 12 ounces, Apgars 9 and 9 over an intact perineum. The infant was suctioned at delivery and placed on the mother's chest. The cord was clamped and cut. The placenta was delivered grossly intact and normal to inspection. There were no lacerations. 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
[2022-01-05] MEDS: prenatal vitamin Capsule 1 CAP PO (10:18)
[2022-01-05] MEDS: ibuprofen 800 mg tablet PO ×3 (10:18→20:56)
[2022-01-05] MEDS: docusate sodium 100 mg Capsule PO ×2 (10:18→17:28)
--- NOTE | 2022-01-05 12:36 | PC.NURSE ---
1200 PT UP TO BATHROOM WHILE IN OB 4, INSTRUCTED ON [employer] [facility] AND VOIDED 200MLS. PT THEN AMBULATED TO OB 10 ORIENTED TO ROOM AND PP PACK. TOLD PATIENT THAT SHE COULD BE UP AND AROUND AND TO CALL HER IF SHE NEEDS ANYTHING.
[2022-01-05] MEDS: HYDROcodone-acetaminophen 5-325 mg Tablet PO (17:28)
[2022-01-05] MEDS: lanolin oint 7 gm 1 APPLIC TOPICAL (17:35)
[2022-01-05] MEDS: benzocaine-menthol 78 gm Canister 1 SPRAY TOPICAL (17:35)
[2022-01-05 23:45] LABS: Hematocrit 24.3 % (37.0-47.0); Hemoglobin 7.8 g/dL (11.5-15.3); Mean Corpuscular HGB Conc 32.1 g/dL (30.0-36.0); Mean Platelet Volume 10.8 fL (7.4-10.4); Platelet Count 178 10^3/cmm (130-400); Red Cell Distribution Width 14.7 % (12.1-15.1); White Blood Count 11.1 10^3/uL (4.0-10.0)
[2022-01-06 00:11] LABS: Rapid Plasma Reagin Syphilis Nonreactive (Nonreactive)
[2022-01-06] MEDS: HYDROcodone-acetaminophen 5-325 mg Tablet PO ×2 (00:48→07:04)
[2022-01-06 05:00] VITALS: BP 129/74; PULSE 66; RESP 15
[2022-01-06] MEDS: ibuprofen 800 mg tablet PO ×3 (08:52→20:58)
[2022-01-06] MEDS: docusate sodium 100 mg Capsule PO ×2 (08:52→16:42)
[2022-01-06] MEDS: prenatal vitamin Capsule 1 CAP PO (08:52)
[2022-01-06 09:40] VITALS: BP 127/81; PULSE 73; RESP 16; TEMP 36.6
--- NOTE | 2022-01-06 10:06 | P.PN_ITS ---
Subjective Subjective: She is doing well today. She has no complaints about herself. She has some concerns about the infant spitting up. Vitals/I&O/Wt Last Vital Signs Temp 97.9 F 01/07/22 09:15 Pulse 84 01/07/22 09:15 Resp 18 01/07/22 09:15 BP 132/87 01/07/22 09:15 Pulse Ox 97 01/07/22 04:37 Physical Exam Narrative: Alert and oriented, sitting up in bed, heart regular rate and rhythm, lungs clear to auscultation bilaterally, abdomen soft and nontender, fundus is firm and U- 3, no calf tenderness Data : 01/05/22 23:25 A&P Assessment and plan (1) Normal spontaneous vaginal delivery: Routine care. Work with nursing on feeding techniques as the infant has been spitting up. 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
[2022-01-06 15:29] VITALS: BP 118/70; PULSE 69; RESP 16; TEMP 36.7
--- NOTE | 2022-01-06 21:27 | PC.NURSE ---
Assisted mother with positioning, latch techniques, and use of nipple shield.
[2022-01-06 22:36] VITALS: BP 119/73; PULSE 91; RESP 16; O2SAT 96
[2022-01-07] MEDS: HYDROcodone-acetaminophen 5-325 mg Tablet PO (00:13)
[2022-01-07 04:37] VITALS: BP 123/71; PULSE 78; RESP 16; O2SAT 97
[2022-01-07 09:15] VITALS: BP 132/87; PULSE 84; RESP 18; TEMP 36.6
--- NOTE | 2022-01-07 10:21 | PM.DCS ---
Discharge Providers Date of Admission: 01/05/22 07:45 Date of Discharge: January 06, 2022 Attending Provider at Admission: Sera Gonzales MD Attending Provider at Discharge: Sera Gonzales MD Primary Care Provider: Sera Gonzales MD Reason for Visit Reason for Visit: contractions Hospital Course Hospital Course This is a 26-year-old G8 now P4 who presented to labor and delivery in active labor. She had a normal spontaneous vaginal delivery of a viable female infant. Mother and did well after delivery. Mother was ambulating, tolerating a regular diet, had no significant pain and average vaginal bleeding. She was comfortable with discharge home on PPD#2. Physical Exam Narrative: Sitting up on bedside couch, pupils equal round reactive to light, extraocular movements intact, heart regular rate and rhythm, lungs clear to auscultation bilaterally abdomen soft, nontender, fundus firm and U- 3, no calf tenderness no significant edema Discharge Data Studies Completed and Pending Laboratory Results WBC 11.1 10^3/uL (4.0-10.0) H 01/05/22 23:25 RBC 3.00 10^6/uL (4.1-5.3) L 01/05/22 23:25 Hgb 7.8 g/dL (11.5-15.3) L 01/05/22 23:25 Hct 24.3 % (37.0-47.0) L 01/05/22 23:25 MCV 81.0 fl (81-99) 01/05/22 23:25 MCH 26.0 pg (28.0-34.0) L 01/05/22 23:25 MCHC 32.1 g/dL (30.0-36.0) 01/05/22 23:25 RDW 14.7 % (12.1-15.1) 01/05/22 23:25 Plt Count 178 10^3/cmm (130-400) 01/05/22 23:25 MPV 10.8 fL (7.4-10.4) H 01/05/22 23:25 Neut % (Auto) 73.0 % 01/05/22 07:36 Lymph % (Auto) 19.9 % 01/05/22 07:36 Dickens % (Auto) 5.3 % 01/05/22 07:36 Eos % (Auto) 1.1 % 01/05/22 07:36 Baso % (Auto) 0.3 % 01/05/22 07:36 Neut # (Auto) 8.21 10^3/uL (1.8-7.7) H 01/05/22 07:36 Lymph # (Auto) 2.2 10^3/uL (0.8-4.8) 01/05/22 07:36 Dickens # (Auto) 0.6 10^3/uL (0.2-0.9) 01/05/22 07:36 Eos # (Auto) 0.1 10^3/uL (0.0-0.8) 01/05/22 07:36 Baso # (Auto) 0.0 10^3/uL (0.0-0.1) 01/05/22 07:36 Nucleated RBC % (auto) 0 % 01/05/22 07:36 Nucleated RBCs # 0.0 /100WBC 01/05/22 07:36 RPR Nonreactive (Nonreactive) 01/05/22 23:25 Vitals Last Vital Signs Temp 97.9 F 01/06/22 09:40 Pulse 73 01/06/22 09:40 Resp 16 01/06/22 09:40 BP 127/81 01/06/22 09:40 Pulse Ox 97 01/05/22 22:45 Discharge Plan Discharge Patient Disposition: Home Condition: Stable Prescriptions: No Action ibuprofen 200 mg Tablet 200 - 400 mg PO Q6H PRN (Reason: Pain) 0RF hydrocodone-acetaminophen 5-325 mg tablet 1 tab PO Q6H PRN (Reason: pain) Qty: 14 0RF polyethylene glycol 3350 [Miralax] 17 gram/dose powder 17 g PO DAILY PRN (Reason: constipation) Qty: 119 0RF docusate sodium 50 mg capsule 100 mg PO BID Qty: 20 0RF Discharge Orders: Discharge Order (Routine); Ordered 01/06/22 Ordered By: Sera Gonzales Referrals: Sera Gonzales MD [Primary Care Provider] - 02/01/22 10:45 am (4 week post- appointment for 02/01/22 @10:45. ) Discharge Diet: Usual diet Discharge Activity: Limit activity as instructed Patient Instructions: Depression (DC), Expression, Collection and Storage of Breast Milk (DC), Bleeding (DC), Preeclampsia and Eclampsia After Delivery (GEN), OB Discharge Report, OB Food/Drug Interaction Guide, Opioid Safety, OB Home Care, OB Vaginal Deliveries Discharge Attestations Time Spent in Discharge Care*: less than 30 min Quality Metrics Clinical Quality Measures [ No reported AMI, CVA or VTE this stay] Coding Level of Care Code Acute Chg FW DC note
[2022-01-07 12:00] VITALS: BP 114/70; PULSE 73; RESP 18; TEMP 36.6
[2022-01-07 12:45] VITALS: BP 114/70; PULSE 73; RESP 18; TEMP 36.6
== END 2022-01-07 12:45 | disposition home or self-care (01) | DRG 807 ==
LOC: OPOB 07:45 → OBGYN 07:45
PROVIDERS: Admitting Provider Family Medicine; PCP Family Medicine; Visit Provider Family Medicine
DX: O80 Encounter for full-term uncomplicated delivery (principal); Z37.0 Single live birth; Z3A.39 39 weeks gestation of pregnancy; Z88.0 Allergy status to penicillin; Z87.891 Personal history of nicotine dependence; Z86.16 Personal history of COVID-19
CPT/HCPCS: 36415; 59025; 59409; 85025; 85027; 86592; 99211

== ENCOUNTER → 2023-04-03 11:14 | Outpatient (BNVA) | payer BC, MEDICAID, SELFPAY | PROVIDERS: PCP Family Medicine; Visit Provider Nurse Practitioner Family | DX: Z20.822 Contact with and (suspected) exposure to COVID-19 (principal); U07.1 COVID-19; H66.001 Acute suppurative otitis media without spontaneous rupture of ear drum, right ear | CPT/HCPCS: 87426 ==

== ENCOUNTER 2023-11-27 08:49 | Outpatient (CLI) | payer BC, MEDICAID, SELFPAY ==
--- NOTE | 2023-11-27 08:55 | CTR_ITS ---
PROCEDURE INFORMATION: Exam: CT Abdomen And Pelvis Without Contrast Exam date and time: 11/27/2023 8:59 AM Age: 28 years old Clinical indication: Other: Left flank pain; Additional info: Renal colic TECHNIQUE: Imaging protocol: Computed tomography of the abdomen and pelvis without contrast. Radiation optimization: All CT scans at this facility use at least one of these dose optimization techniques: automated exposure control; mA and/or kV adjustment per patient size (includes targeted exams where dose is matched to clinical indication); or iterative reconstruction. COMPARISON: US OB >= 14 weeks fetus [id number] 08/23/2021 1:59 PM RADIATION DOSE METRICS: Total DLP (mGy-cm): 292.25 FINDINGS: Lungs: Lung bases are clear. Liver: Liver is unremarkable. No mass or enlargement detected. Gallbladder and bile ducts: Normal. No calcified stones. No ductal dilation. Pancreas: Unremarkable. Main pancreatic duct is not significantly dilated. Spleen: Spleen is mildly enlarged, otherwise unremarkable. No masses detected. Adrenal glands: Normal. No mass. Kidneys and ureters: 1 cm nonobstructing stone lower portion left renal hilum. 3 cm isodense cortical lesion midpole right kidney and 1.5 cm isodense cortical lesion lower pole left kidney both containing some peripheral calcification that cannot be resolved as benign cysts. Stomach and bowel: Mild amount of stool throughout the colon otherwise GI tract is unremarkable. Appendix: No evidence of acute appendicitis. Intraperitoneal space: Unremarkable. No free air. No significant fluid collection. Vasculature: Unremarkable. No abdominal aortic aneurysm. Lymph nodes: Unremarkable. No enlarged lymph nodes. Urinary bladder: Unremarkable as visualized. Reproductive: Uterus is retroverted and otherwise unremarkable. Bones/joints: Unremarkable. No acute fracture. Soft tissues: Unremarkable. CT/CT kidney stone [id number] IMPRESSION: 1. 1 cm nonobstructing left renal stone. 2. 3 cm indeterminate right renal lesion 1.5 cm indeterminate left renal lesion for which follow-up nonemergent renal ultrasound exam recommended for further evaluation. 3. Mild splenomegaly.
== END 2023-11-27 08:50 | disposition home or self-care (01) ==
LOC: RAD 08:49
PROVIDERS: PCP Family Medicine; Visit Provider Family Medicine
DX: N23 Unspecified renal colic (principal); N20.0 Calculus of kidney; N28.9 Disorder of kidney and ureter, unspecified; R16.1 Splenomegaly, not elsewhere classified
CPT/HCPCS: 74176

== ENCOUNTER 2023-12-17 07:33 | Outpatient (CLI) | payer BC, MEDICAID, SELFPAY ==
--- NOTE | 2023-12-17 08:32 | US_ITS ---
WS: [id number] RENAL ULTRASOUND HISTORY: RENAL COLIC COMPARISON: CT 11/27/2023 TECHNIQUE: 2-D and color Doppler imaging of the kidney submitted. Right kidney: 10.5 cm x 5.5 cm x 4.9 cm. Cortex: 1.1 cm Normal size kidney. Cyst in the lower pole with a small 0.6 cm peripheral calcification. Cyst measure s 2.5 x 2.3 x 1.7 cm. Left kidney: 10.5 cm x 5.6 cm x 4.2 cm. Cortex: 1.1 cm Cortical cyst inferior LEFT kidney with a maximal diameter of 1.0 cm. Nonobstructing calcifications. The largest calcification in the central kidney measures 1.2 x 1.2 x 0.5 cm. Aorta: Normal. Urinary Bladder: Normal distention. US/US renal BI* [id number] IMPRESSION: 1. Simple cyst RIGHT kidney with a peripheral calcification measuring 0.6 cm. 2. Nonobstructing calcification central LEFT renal pelvis measures 1.2 x 1.2 x 0.5 cm.
== END 2023-12-17 07:34 | disposition home or self-care (01) ==
LOC: RAD 07:33
PROVIDERS: PCP Family Medicine; Visit Provider Family Medicine
DX: N28.1 Cyst of kidney, acquired (principal); N23 Unspecified renal colic
CPT/HCPCS: 76770